=== PATIENT | male | born 1985 | race Caucasian/White ===

== ENCOUNTER 2017-06-01 01:30 | Emergency (ER) | payer MEDICAID, OTHER ==
[2017-06-01 02:07] VITALS: BP 123/75
[2017-06-01] MEDS ORDERED: LIDOCAINE 1% INJ-PF (10 MG/ML) 30 ML SDV INJ ONE (02:44)
[2017-06-01] MEDS ORDERED: DIPH/PERTUSS(ACELL)/TETANUS VAC/PF 0.5 ML SYR (>=10YO) IM ONE (02:47)
--- NOTE | 2017-06-01 03:54 | ER Document Report ---
ED General - General Chief Complaint: Hand Injury Stated Complaint: HAND INJURY Time Seen by Provider: 06/01/17 02:31 Notes: Patient is a 31-year-old male who presents with complaint of laceration to the fourth and fifth digit of his right hand. 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 He is unsure if he has had a tetanus shot last 5 years. No weakness or numbness into the fingers. No other complaints at this time. TRAVEL OUTSIDE OF THE [place] IN LAST 30 DAYS: No - Related Data Allergies/Adverse Reactions: No Known Allergies Allergy (Verified 06/01/17 01:44) Past Medical History - Social History Smoking Status: Unknown if Ever Smoked Frequency of alcohol use: None Drug Abuse: None Family History: DM, Other - bipolor Psychiatric Medical History: Reports: Hx Anxiety, Hx Attention Deficit Hyperactivity Disorder, Hx Bipolar Disorder - borderline, Hx Depression, Hx Post Traumatic Stress Disorder Traumatic Medical History: Reports: Hx Fractures, Hx Traumatic Brain Injury Past Surgical History: Reports: Hx Oral Surgery - Immunizations Hx Diphtheria, Pertussis, Tetanus Vaccination: Yes Review of Systems - Review of Systems Notes: My Normal Review Basic REVIEW OF SYSTEMS: CONSTITUTIONAL : Denies fever, chills, or sweats. Denies recent illness. MUSCULOSKELETAL: Denies neck or back pain or joint pain or swelling. SKIN: Lacerations to the fourth and fifth digit of right hand. NEUROLOGICAL: Denies sensory or motor loss. ALL OTHER SYSTEMS REVIEWED AND NEGATIVE. Physical Exam - Vital signs Vitals: Temp Pulse Resp BP Pulse Ox 98.2 F 90 18 123/75 96 06/01/17 02:05 06/01/17 02:05 06/01/17 02:05 06/01/17 02:05 06/01/17 02:05 - Notes Notes: General Appearance: Well nourished, alert, cooperative, no acute distress, no obvious discomfort. Well-appearing. Vitals: reviewed, See vital signs table. Extremities: strength 5/5 in all extremities, good pulses in all extremities, 2 cm U-shaped laceration to the palmar aspect of the distal phalanx of the fifth digit on the right hand. 1 cm superficial laceration to the palmar aspect of the distal phalanx of the fourth digit on the right hand. No tendon involvement. Patient is able to fully flex and extend all parts of the fourth and fifth digits. Patient is still able to flex when isolating just the distal phalanxes of both digits. Skin: warm, dry, appropriate color, no rash Neuro: speech clear, oriented x 3, normal affect, responds appropriately to questions. Sensation intact. Course - Re-evaluation Re-evalutation: 06/01/17 06:23 Patient is feeling well. I thoroughly irrigated and cleaned both wounds. Apply Dermabond to the laceration of fourth digit. Applied sutures to the laceration on the fifth digit. I will place patient on antibiotics help events infection. I encourage him return to ER immediately if he has any redness or swelling to the fingers. I encouraged him to return in 7 days for suture removal. I encouraged him to wear gloves when he is at work so he does not get dirt the cuts. Patient agrees with plan will be discharged home. Dictation of this chart was performed using voice recognition software; therefore, there may be some unintended grammatical errors. - Vital Signs Vital signs: Temp Pulse Resp BP Pulse Ox 98.2 F 90 18 123/75 96 06/01/17 02:05 06/01/17 02:05 06/01/17 02:05 06/01/17 02:05 06/01/17 02:05 Procedures - Laceration/Wound Repair 4th finger Wound length (cm): 1 Wound's Depth, Shape: Superficial Laceration pre-procedure: Shur-Clens applied Wound explored: Clean Wound Repaired With: Dermabond Complications: Yes right 5th finger Wound length (cm): 2 Wound's Depth, Shape: Irregular Laceration pre-procedure: Shur-Clens applied Anesthetic type: 1% Lidocaine Volume Anesthetic (mLs): 1 Wound explored: Clean Irrigated w/ Saline (mLs): 60 Wound Repaired With: Peconic Suture Size/Type: 6:0, Ethilon Number of Sutures: 4 Post-procedure NV exam normal: Yes Complications: No Discharge - Discharge Clinical Impression: Hand laceration Condition: Stable Disposition: HOME, SELF-CARE Additional Instructions: LACERATION CARE: Your laceration has been sutured to keep the skin edges aligned during healing. The time of suture removal depends on the nature and location of your cut. Please follow the care instructions the doctor has outlined for you and return for further care, according to the schedule you've been given. Keep the wound and dressing clean. Unless you were told otherwise, you may shower daily, blotting the wound dry with a clean, unused towel. At other times, If the dressing gets wet or blood soaked, remove it and blot the wound dry, then reapply a new dressing. Unless you were instructed otherwise, dressings should be changed at least daily. If any signs of infection occur (swelling, redness, drainage, increasing tenderness, red streaks, tender lumps in the armpit or groin above the laceration, or fever), see the doctor immediately. SOAP CLEANSING: Gently wash the wound daily using a mild soap (like Ivory, Phisoderm, Neutrogena). Use warm water, rubbing gently until all debris, ooze, and crusting have been washed from the wound. Allow to dry briefly (about 10 minutes) after cleaning. Repeat this cleansing at least three times a day for the first two days and then once or twice a day. ANTIBIOTIC OINTMENT PROTECTION: Your wounds are such that dressing them is not practical or optional. After cleansing, you should apply a thin coating of antibiotic ointment ( Bacitracin, not Neosporin) to the wounds at least three times daily. This lessens infection risk, and may decrease the amount of scarring. Use a q-tip or dull butter knife, not your finger, to apply this ointment. Any debris or ooze which builds up in the ointment should be gently rubbed off with a sterile gauze pad. Harder crusting may need to be gently scrubbed off with a clean wash cloth with soap and warm water, perhaps applying a warm, wet wash cloth to the wound for ten minutes first. Development of redness, severe itching, or blistering may mean allergy to the ointment. See the doctor. TETANUS IMMUNIZATION GIVEN: You have been given an immunization against tetanus. Please record this in your records. In general, a booster is needed only once every 10 years. The tetanus shot protects against tetanus or "lockjaw," which is a complication of certain wound infections (the tetanus shot cannot protect against the actual infection). The immunization site may become warm and red due to local reaction. If this occurs, apply warm compresses and take aspirin or ibuprofen to reduce inflammation and discomfort. Return for evaluation if the reaction becomes severe. PROPHYLACTIC ANTIBIOTIC: The antibiotics which have been prescribed are designed to decrease the risk of infection. Only certain types of wounds benefit from this -- the typical cut, scrape, or burn DOES NOT require antibiotics. Of course, infection can still occur despite the use of prophylactic antibiotics. Your wound will heal with less chance of an infectious complication if you take the medication as directed. The most important dose is the FIRST dose, so don't delay filling the prescription! FOLLOW-UP CARE: Your sutures should be removed in __7___ days. To facilitate a timely removal of your sutures, you may return to the Emergency Department at [facility]. You do not need to call for an appointment, but the best time to come in for suture removal is early in the morning. If you have been referred to another physician for follow-up care, call that physicians office for an appointment as you were instructed. If you experience a significant change in your laceration, or if you are concerned there may be an infection (swelling, redness, drainage, increasing tenderness, red streaks, tender lumps in the armpit or groin above the laceration, or fever) , return to the Emergency Department immediately re-evaluation. Please keep the laceration on our hand covered with a glove while at work. Prescriptions: Cephalexin Monohydrate [Keflex 500 mg Capsule] 500 mg PO BID #10 capsule Forms: Return to Work
== END 2017-06-01 04:08 | disposition home or self-care (01) ==
LOC: ER 01:30
DX: S61.216A Laceration without foreign body of right little finger without damage to nail, initial encounter (principal); S61.214A Laceration without foreign body of right ring finger without damage to nail, initial encounter; W45.8XXA Other foreign body or object entering through skin, initial encounter; Y92.511 Restaurant or cafe as the place of occurrence of the external cause; Y99.0 Civilian activity done for income or pay
CPT/HCPCS: 99283; 90471; 90715; 12002; J3490

== ENCOUNTER → 2018-10-02 | Outpatient (CLI) | payer MEDICAID ==
--- NOTE | 2018-10-02 16:23 | RADIOLOGY REPORT (SQ) ---
EXAM DESCRIPTION: SHOULDER LEFT 2 OR MORE VIEWS COMPLETED DATE/TIME: 10/02/2018 4:08 pm REASON FOR STUDY: (R20.2)PARESTHESIAS, (M25.512) LEFT SHOULDER PAIN R20.2 PARESTHESIA OF SKIN M25.5 12 PAIN IN LEFT SHOULDER COMPARISON: None. NUMBER OF VIEWS: Three views. TECHNIQUE: Internal rotation, external rotation, and Y view images acquired of the left shoulder. LIMITATIONS: None. FINDINGS: MINERALIZATION: Normal. BONES: No acute fracture or dislocation. No worrisome bone lesions. JOINTS: No dislocation. VISUALIZED LUNGS AND RIBS: No pneumothorax. No rib fracture. SOFT TISSUES: No radiopaque foreign body. OTHER: No other significant finding. IMPRESSION: NEGATIVE STUDY OF THE LEFT SHOULDER. NO RADIOGRAPHIC EVIDENCE OF ACUTE INJURY. TECHNICAL DOCUMENTATION: JOB ID: [id number] [employer]- All Rights Reserved Reading location - IP/workstation name: [email or web address]
--- NOTE | 2018-10-02 16:23 | RADIOLOGY REPORT (SQ) ---
EXAM DESCRIPTION: CERV SP 4 OR 5 VIEWS COMPLETED DATE/TIME: 10/02/2018 4:08 pm REASON FOR STUDY: (R20.2)PARESTHESIAS, (M25.512) LEFT SHOULDER PAIN R20.2 PARESTHESIA OF SKIN M25.5 12 PAIN IN LEFT SHOULDER COMPARISON: None. NUMBER OF VIEWS: Five views. TECHNIQUE: AP, lateral, obliques and odontoid radiographic images acquired of the cervical spine. LIMITATIONS: None. FINDINGS: MINERALIZATION: Normal. ALIGNMENT: Anatomic. VERTEBRAE: Vertebral bodies of normal height. DISCS: No significant osteophytes or sclerosis. Disc height maintained. FORAMINA: No osteophytes or foraminal narrowing. LATERAL AND POSTERIOR ELEMENTS: Facets, lateral masses and spinous processes without significant find ings. HARDWARE: None in the spine. SOFT TISSUES: No masses or calcifications. Lung apices clear. OTHER: No other significant finding. IMPRESSION: NO SIGNIFICANT RADIOGRAPHIC FINDING IN THE CERVICAL SPINE. TECHNICAL DOCUMENTATION: JOB ID: [id number] [email or web address]- All Rights Reserved Reading location - IP/workstation name: [email or web address]
== END ==
LOC: RAD 15:45
PROVIDERS: ATTEND Pediatrics
DX: M25.512 Pain in left shoulder (principal); R20.2 Paresthesia of skin
CPT/HCPCS: 72050